=== PATIENT | female | born 1990 | race African-American/Black ===

== ENCOUNTER 2017-11-01 05:45 | Inpatient (IN) ==
[2017-11-01] MEDS ORDERED: ONDANSETRON 4 MG/2 ML VIAL IV PRN ×2 (07:22→22:04)
[2017-11-01] MEDS: LACTATED RINGERS 1,000 ML IV SCH ×2 (07:28→09:17)
[2017-11-01 07:43] LABS: Basophils % 0.5 % (0.0-0.8); Eosinophils # 0.2 10*3/uL (0.0-0.87); Eosinophils % 2.2 % (0.00-10.9); Hematocrit 28.7 VOL% (35.7-47.0); Hemoglobin 8.6 GM/DL (12.0-16.0); Immature Granulocytes % 0.8 %; Immature Granulocytes Absolute 0.06 #; Lymphocytes # 1.5 10*3/uL (1.4-4.0); Lymphocytes % 20.5 % (21.3-54.2); Mean Corpuscular Hemoglobin 22 PG (27-34); Mean Corpuscular Volume 72.8 FL (87-102); Mean Platelet Volume 10.8 FL (9.6-12.0); Monocytes # 0.7 10*3/uL (0.11-0.8); Monocytes % 9.8 % (1.7-12.7); Neutrophils # 4.8 10*3/uL (1.4-7.4); Neutrophils % 66.2 % (38.7-73.9); Platelet Count 336 T/CUMM (130-400); Red Blood Count 3.94 MC/CUMM (3.8-5.5); Red Cell Distribution Width 16.5 % (9.3-17.3); White Blood Count 7.3 T/CUMM (4-12)
[2017-11-01] MEDS: OXYTOCIN/LR 20 UNIT/1,000 ML BAG IV SCH (07:59)
[2017-11-01] MEDS ORDERED: PROMETHAZINE 25 MG/1 ML VIAL IM ONE (08:15)
[2017-11-01] MEDS ORDERED: CITRIC ACID/SODIUM CITRATE 30 ML UDCUP PO ONE (08:15)
[2017-11-01] MEDS ORDERED: diphenhydrAMINE 50 MG/1 ML VIAL IV PRN (08:15)
[2017-11-01] MEDS ORDERED: hydrOXYzine HCL 25 MG/1 ML VIAL IM PRN (08:15)
[2017-11-01] MEDS ORDERED: FAMOTIDINE 20 MG/2 ML VIAL IV ONE (08:15)
[2017-11-01] MEDS ORDERED: ePHEDrine 50 MG/ML AMP IV PRN (08:15)
[2017-11-01] MEDS ORDERED: fentaNYL 2 MCG/ROPIV 0.2% EPID 150 ML EPIDURAL SCH (08:30)
[2017-11-01] MEDS ORDERED: hydrALAZINE 20 MG/1 ML VIAL IV PRN (11:56)
[2017-11-01] MEDS ORDERED: LABETALOL 20 MG/4 ML SYRINGE IV PRN ×2 (11:56)
[2017-11-01] MEDS ORDERED: LABETALOL 200 MG/40 ML VIAL IV PRN (11:56)
[2017-11-01 12:15] LABS: INR 0.9; PT Patient Result 9.3 SECS; Partial Thromboplastin Time 24.8 SECS (0-40)
[2017-11-01 13:09] LABS: Apearance,Urine CLEAR (Clear); Bilirubin,Urine Negative (Negative); Blood, Urine Negative (Negative); Glucose,Urine (UA) Negative (Negative); Ketones,Urine Negative (Negative); Mucus,Urine Occasional /LPF (Occasional); Nitrite,Urine Negative (Negative); Protein,Urine 30 MG/DL; Squamous Epithelial Cell,Urine Occasional /HPF (0-10); Urine Color Yellow (Yellow); Urine Specific Gravity 1.013 (1.001-1.035); WBC,Urine 12 /HPF (0-6)
[2017-11-01] MEDS ORDERED: ceFAZolin 2,000 MG in PREMIX 1 EACH IV ONE (17:03)
[2017-11-01] MEDS ORDERED: OXYTOCIN/LR 20 UNIT/1,000 ML BAG IV ONE ×2 (17:18→22:04)
[2017-11-01] MEDS ORDERED: HYDROmorphone 2 MG/1 ML VIAL ONE (21:57)
[2017-11-01] MEDS ORDERED: MORPHINE 10 MG/10 ML VIAL ONE (22:00)
[2017-11-01] MEDS ORDERED: MIDAZOLAM 2 MG/2 ML VIAL ONE (22:00)
[2017-11-01] MEDS ORDERED: PROPOFOL 200 MG/20 ML VIAL IV ONE (22:01)
[2017-11-01] MEDS ORDERED: LIDOCAINE MPF 2% /EPI 20 ML VIAL ONE (22:01)
[2017-11-01] MEDS ORDERED: LABETALOL 100 MG TABLET ONE (22:02)
[2017-11-01] MEDS ORDERED: LANOLIN 50% CREAM 0.3 OZ TUBE TOP PRN (22:04)
[2017-11-01] MEDS ORDERED: DIPH/TET/ACEL PERT BOOSTER VACCINE 0.5 ML VIAL IM ONE (22:04)
[2017-11-01] MEDS ORDERED: oxyCODONE/ACETAMINOPHEN 5-325 MG TABLET PO PRN (22:04)
[2017-11-01] MEDS ORDERED: WITCH HAZEL PADS 100/JAR TOP PRN (22:04)
[2017-11-01] MEDS ORDERED: MEASLES/MUMPS/RUBELLA VACCINE 0.5 ML VIAL SUBCUT ONE (22:04)
[2017-11-01] MEDS ORDERED: RHO(D) IMMUNE GLOBULIN 300 MCG SYRINGE IM ONE (22:04)
[2017-11-01] MEDS ORDERED: HYDROCORTISONE 2.5% RECTAL CREAM 30 GM TUBE TOP PRN (22:04)
[2017-11-01] MEDS ORDERED: BENZOCAINE 20%/MENTHOL 0.5% SPRAY 56 GM CAN TOP PRN (22:04)
[2017-11-01] MEDS ORDERED: BISACODYL 10 MG SUPP RECTAL PRN (22:04)
[2017-11-01] MEDS ORDERED: ACETAMINOPHEN 325 MG TABLET PO PRN (22:04)
[2017-11-01] MEDS: LABETALOL 100 MG TABLET PO SCH (22:04)
[2017-11-01] MEDS ORDERED: KETOROLAC 30 MG/1 ML VIAL IV ONE (22:07)
[2017-11-01] MEDS ORDERED: HYDROmorphone 2 MG/1 ML VIAL IV PRN (22:07)
[2017-11-02] MEDS ORDERED: SODIUM CHLORIDE 0.9% 50 ML IV ONE (03:00)
[2017-11-02] MEDS: cefOXitin 2,000 MG in SYRINGE 1 EACH IV SCH ×4 (03:05→22:32)
[2017-11-02 06:09] LABS: Basophils % 0.2 % (0.0-0.8); Eosinophils % 0.1 % (0.00-10.9); Hematocrit 24.3 VOL% (35.7-47.0); Hemoglobin 7.6 GM/DL (12.0-16.0); Immature Granulocytes % 0.7 %; Immature Granulocytes Absolute 0.11 #; Lymphocytes # 1.4 10*3/uL (1.4-4.0); Lymphocytes % 8.6 % (21.3-54.2); Mean Corpuscular HGB Conc 31.3 GM/DL (32-36); Mean Corpuscular Hemoglobin 22 PG (27-34); Mean Corpuscular Volume 71.3 FL (87-102); Mean Platelet Volume 10.4 FL (9.6-12.0); Monocytes # 1.4 10*3/uL (0.11-0.8); Monocytes % 8.6 % (1.7-12.7); Neutrophils # 12.9 10*3/uL (1.4-7.4); Neutrophils % 81.8 % (38.7-73.9); Platelet Count 302 T/CUMM (130-400); Red Blood Count 3.41 MC/CUMM (3.8-5.5); Red Cell Distribution Width 16.6 % (9.3-17.3); White Blood Count 15.7 T/CUMM (4-12)
[2017-11-02] MEDS: OXYTOCIN/LR 20 UNIT/1,000 ML BAG IV SCH (11:42)
[2017-11-02] MEDS ORDERED: SODIUM CHLORIDE 0.9% 100 ML IV ONE (11:45)
[2017-11-02] MEDS: DOCUSATE SODIUM 100 MG CAPSULE PO SCH ×2 (12:01→21:41)
[2017-11-02] MEDS: LABETALOL 100 MG TABLET PO SCH ×2 (12:01→21:41)
[2017-11-02] MEDS: MULTIVITAMIN (PRENATAL) TABLET PO SCH (12:01)
[2017-11-02] MEDS: FERROUS SULFATE 325 MG TABLET PO SCH (21:40)
[2017-11-02] MEDS ORDERED: cefOXitin 2,000 MG in SYRINGE 1 EACH IV SCH (22:30)
[2017-11-02] MEDS: SIMETHICONE CHEW 80 MG TABLET PO PRN (22:31)
[2017-11-03] MEDS: oxyCODONE/ACETAMINOPHEN 5-325 MG TABLET PO PRN ×3 (00:19→19:28)
[2017-11-03] MEDS: MULTIVITAMIN (PRENATAL) TABLET PO SCH (08:42)
[2017-11-03] MEDS: LABETALOL 100 MG TABLET PO SCH ×2 (08:44→20:39)
[2017-11-03] MEDS: FERROUS SULFATE 325 MG TABLET PO SCH ×2 (08:44→20:39)
[2017-11-03] MEDS: DOCUSATE SODIUM 100 MG CAPSULE PO SCH ×2 (08:44→20:38)
[2017-11-03] MEDS: SIMETHICONE CHEW 80 MG TABLET PO PRN (08:47)
[2017-11-03] MEDS: MAGNESIUM HYDROXIDE SUSP 30 ML UDCUP PO PRN ×2 (09:05→20:38)
[2017-11-03] MEDS ORDERED: MAGNESIUM CITRATE 300 ML BOTTLE PO ONE (09:16)
[2017-11-03] MEDS: IBUPROFEN 800 MG TABLET PO PRN (19:28)
[2017-11-04] MEDS: MULTIVITAMIN (PRENATAL) TABLET PO SCH (09:28)
[2017-11-04] MEDS: FERROUS SULFATE 325 MG TABLET PO SCH (09:28)
[2017-11-04] MEDS: MAGNESIUM HYDROXIDE SUSP 30 ML UDCUP PO PRN (09:28)
[2017-11-04] MEDS: LABETALOL 100 MG TABLET PO SCH (09:28)
[2017-11-04] MEDS: DOCUSATE SODIUM 100 MG CAPSULE PO SCH (09:28)
[2017-11-04] MEDS: SIMETHICONE CHEW 80 MG TABLET PO PRN (09:28)
[2017-11-04] MEDS: IBUPROFEN 800 MG TABLET PO PRN (09:29)
[2017-11-04 12:38] VITALS: BP 152/96
== END 2017-11-04 13:05 | disposition home or self-care (01) | DRG 766 ==
LOC: N.LDOUT 05:45 → N.LD 05:48 → N.OB 11-02 14:20
PROVIDERS: ADMIT Specialist; ATTEND Specialist
PROC: LDCSECT (ICD-10-PCS; 2017-11-01 20:00)